=== PATIENT | male | born 2000 | race Caucasian/White ===

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

== ENCOUNTER 2025-02-13 02:05 | Emergency (ER) | payer MEDICAID, SELFPAY ==
[2025-02-13 02:22] VITALS: BP 143/75; PULSE 64; RESP 15; TEMP 36.6; O2SAT 97; BMI 27.8
[2025-02-13 02:48] LABS: IDNOW Serial# 58CA691E; Strep A Nucleic Acid Negative (Negative)
[2025-02-13 03:20] LABS: Resp Syncy Virus RNA Qual PCR NEGATIVE (Negative); SARS COV2 PCR INHOUSE NEGATIVE (Negative)
[2025-02-13 04:00] VITALS: BP 132/76; PULSE 63; RESP 18; TEMP 36.7; O2SAT 96
[2025-02-13 06:25] VITALS: BP 134/62; PULSE 57; RESP 14; TEMP 36.6; O2SAT 97
--- NOTE | 2025-02-13 07:34 | ED_ITS ---
HPI - General Adult General Chief complaint: General Medical Stated complaint: Throat Pain Time Seen by Provider: 02/13/25 07:34 Source: patient Mode of arrival: ambulatory Limitations: no limitations History of Present Illness ED Provider: HPI narrative: 24-year-old presenting with what he describes as acid reflux, he states his diet is not very good he has been dealing with this for the past couple of years, he did develop the symptoms after eating spicy Cheetos, and no sore throat reported, no cough and no fevers or chills. No nausea no vomiting no abdominal pain. Related Data Previous Rx's ?Medication ?Instructions ?Recorded ondansetron HCl 4 mg tablet 4 mg PO Q8H PRN nausea and 03/19/21 (Zofran) vomiting #7 tabs famotidine 20 mg tablet 20 mg PO BEDTIME #60 tabs sucralfate 100 mg/mL oral 10 ml PO QID #420 mL 5 suspension (Carafate) Allergies Allergy/AdvReac Type Severity Reaction Status Date / Time No Known Allergies Allergy Verified 02/13/25 02:24 Review of Systems Constitutional: Constitutional: Reports as per [facility] Social History Social History (System 05/16/23 @ 14:42 by Mckenzie Mojica) Smoked in Last 30 Days: No Use of substances other than those prescribed or required for medical reasons: Yes Substance Use Type: Marijuana Advance Directives: No Do you have a plan to hurt others: No Plan Physical Exam ED Vital Signs: Vital Signs - 24 hr 02/13/25 02:22 02/13/25 04:00 02/13/25 06:25 Temperature 97.8 F 98.1 F 97.8 F Pulse Rate 64 63 57 Respiratory Rate 15 18 14 Blood Pressure 143/75 H 132/76 134/62 Pulse Oximetry 97 96 97 Oxygen Delivery Method Room Air Room Air BMI result Body Mass Index 27.8 Const Other: * Gen: ?Overall well-appearing patient * HEENT: PERRLA, EOMI, MMM, * Neck: Supple, no LAD * CV: RRR, no obvious murmurs appreciated * Resp: ?No wheezing rales rhonchi no stridor moving air well * Abd: ?Bowel sounds are present, minimal epigastric tenderness no rebound no rigidity * MSK: FROM, strength 5/5 all extremities * Skin: Warm, dry, intact, * Neuro: ?Alert and oriented x3, moving upper and lower extremities symmetrically, no obvious facial asymmetry noted Medical Decision Making Medical Decision Making MDM Narrative: Spent quite a bit of time discussing dietary changes with the patient, benign abdominal exam, we will discharge home on medications, dietary changes, considerations for workup as below, his symptoms are not consistent with the ENT infection, he did have a workup that is negative. Differential Diagnosis Differential Diagnoses: The differential diagnosis associated with the presentation includes (Cholecystitis, pancreatitis, hepatitis, gastritis, cholangitis, choledocholithiasis, SBO, ACS) Admission/Observation Consideration of admission/observation: Escalation of care including admission/observation considered 2022 Emergency Medicine Coding Guide from [employer] on 02/13/2025 All calculations should be rechecked by clinician prior to use RESULT SUMMARY: 3 Estimated Level of Service Problems: Low (3) Risk: Moderate (4) Data: Limited (3) NARRATIVE MDM: This patient's problem complexity is Low as patient: has 1 chronic illness that appears to be at its baseline. This patient's risk is Moderate due to: overall presentation requiring evaluation for a potentially Moderate-risk process. This patient's data complexity is Limited. INPUTS: Number and Complexity ?> 9 = 3: 1 stable, chronic illness (i) Risk level ?> 3 = Moderate Tests ordered ?> 1 = 1 Tests results reviewed (excluding labs) ?> 1 = 1 Prior external notes reviewed ?> 0 = 0 Assessment requiring and independent historian ?> 0 = No Independent interpretation of tests ?> 0 = No Discussed management/test interpretation w/external professional ?> 0 = No Lab Data Labs: Lab Results 02/13/25 Range/Units 02:36 Influenza Type A (PCR) NEGATIVE (Negative) Influenza Type B (PCR) NEGATIVE (Negative) RSV RNA Qual (PCR) NEGATIVE (Negative) SARS-CoV-2 RNA (RT-PCR) NEGATIVE (Negative) S. pyogenes GrpA ALEX Negative (Negative) Discharge Plan Discharge Clinical Impression: Acid reflux Patient Disposition: Home, Self-Care Instructions: Diet for Stomach Ulcers and Gastritis (ED) Additional Instructions: Please follow the diet we discussed, use famotidine before bedtime and Carafate for the next 1 week 20 minutes before any meals. Any other issues concerns come back to the ER otherwise follow up with the PCP. Prescriptions: New sucralfate [Carafate] 100 mg/mL suspension 10 ml PO QID Qty: 420 0RF Rx Instructions: swish in mouth and swallow; use after food/drink famotidine 20 mg tablet 20 mg PO BEDTIME Qty: 60 0RF No Action ondansetron HCl [Zofran] 4 mg tablet 4 mg PO Q8H PRN (Reason: nausea and vomiting) Qty: 7 0RF Print Language: Sammarinese
[2025-02-13 08:31] VITALS: BP 133/56; PULSE 73; RESP 18; TEMP 37.1; O2SAT 95
[2025-02-13] MEDS: Sucralfate Oral Suspension 1 GM/10 ML ORAL.SUSP PO (08:32)
[2025-02-13] MEDS: Lidocaine HCl Viscous 2 % 15 ML SOLUTION PO (08:32)
[2025-02-13] MEDS: Magnesium Hydrox/Alum Hydrox 30 ML ORAL.SUSP PO (08:32)
--- NOTE | 2025-02-13 08:34 | PC.NURSE ---
This RN assumed care of patient @ 0700. Patient resting but easily awoken. No visual signs of respiratory distress. PAtient c/o pain in throat rated 8/10 non radiating. Administered medications per MAR with good effect per patient stating I can breathe . Patient awaiting discharge
[2025-02-13 08:35] VITALS: BP 133/56; PULSE 55; RESP 16; TEMP 36.4; O2SAT 96
== END 2025-02-13 08:45 | disposition home or self-care (01) ==
PROVIDERS: Emergency Provider Emergency Medicine
DX: K21.9 Gastro-esophageal reflux disease without esophagitis (principal); R07.0 Pain in throat
CPT/HCPCS: 87637; 87651; 99283; 99284